=== PATIENT | female | born 1990 | race Caucasian/White ===

== ENCOUNTER 2019-02-15 04:02 | Inpatient (IN) | payer BC, OTHER ==
[2019-02-15] VITALS (38 sets, daily range): BP systolic 102–148; BP diastolic 60–91
[~2019-02-15] VITALS: Ht 170.2 cm; Wt 81.3 kg
[2019-02-15] MEDS ORDERED: MULTTAB20 PO (04:23)
[2019-02-15] MEDS ORDERED: LACTATED RINGER'S 1000 ML IV STA (04:47)
[2019-02-15] MEDS ORDERED: LR 1,000 ML IV SCH (04:47)
[2019-02-15] MEDS ORDERED: PENICILLIN G POTASSIUM IV 5 MU in D5W MINI-BAG PLUS 100 ML IV STA (04:47)
[2019-02-15 05:21] LABS: HEMATOCRIT 35.5 % (36.0-47.0); HEMOGLOBIN 11.8 g/dl (12.0-15.5); MEAN CORPUSCULAR HGB CONC 33.2 g/dl (32.0-36.5); MEAN CORPUSCULAR VOLUME 90.3 fl (80.0-96.0); PLATELET COUNT, AUTOMATED 182 10^3/uL (150-450); RED BLOOD COUNT 3.93 10^6/uL (4.00-5.40); WHITE BLOOD COUNT 14.7 10^3/uL (4.0-10.0)
[2019-02-15] MEDS ORDERED: FENTANYL 2MCG/ML ROPIVACAINE 0.2% IN 0.9% NACL 100ML IVBAG As Ordered ONE (05:37)
[2019-02-15] MEDS ORDERED: LACTATED RINGER'S 1000 ML IV PRN (07:00)
[2019-02-15] MEDS ORDERED: diphenhydrAMINE INJ 50MG/ML VIAL (J1200) IV PRN (07:00)
[2019-02-15] MEDS ORDERED: EPIDURAL COMMENT XX SCH (07:00)
[2019-02-15] MEDS ORDERED: ONDANSETRON 4MG/2ML VIAL (J2405) IV PRN (07:00)
[2019-02-15] MEDS ORDERED: ePHEDrine SULFATE 25 MG/5 ML(5MG/ML) SYRINGE IV PRN (07:00)
[2019-02-15] MEDS ORDERED: NALOXONE INJ 0.4 MG/1 ML VIAL (J2310) IV PRN (07:00)
[2019-02-15] MEDS ORDERED: FENTANYL/ROPIVACAINE/NACL BAG 100 ML EPIDURAL SCH (07:00)
[2019-02-15] MEDS ORDERED: EPIDURAL/PCA KEYS XX PRN (07:00)
[2019-02-15] MEDS ORDERED: REFRIGERATOR IV KEYS XX PRN (07:00)
[2019-02-15] MEDS ORDERED: PENICILLIN G POTASSIUM IV 2.5 MU in APPROPRIATE DILUENT 1 EA IV SCH (09:00)
[2019-02-15] MEDS ORDERED: OXYTOCIN 30 UNITS IN 0.9% NaCl 500ML IV BAG (J2590) As Ordered ONE (10:42)
[2019-02-15] MEDS ORDERED: OXYTOCIN DRIP 30 UNITS in APPROPRIATE DILUENT 1 EA IV SCH (11:15)
[2019-02-15] MEDS: OXYTOCIN DRIP 30 UNITS in APPROPRIATE DILUENT 1 EA IV SCH ×2 (12:49→15:47)
[2019-02-15 12:58] LABS: CORD GAS ABE A -4.7; CORD GAS HCO3 A 23.6 MEQ/L; CORD GAS O2 SAT A 51.5 %; CORD GAS PCO2 A 55.5 mmHg; CORD GAS PH A 7.247 UNITS; CORD GAS PO2 A 25.4 mmHg; CORD GAS SBC A 19.4 MEQ/L; CORD GAS TCO2 A 25.3 MEQ/L
[2019-02-15 12:59] LABS: CORD GAS ABE V -2.9; CORD GAS HCO3 V 22.1 MEQ/L; CORD GAS O2 SAT V 80.1 %; CORD GAS PCO2 V 39.6 mmHg; CORD GAS PH V 7.364 UNITS; CORD GAS PO2 V 35.2 mmHg; CORD GAS SBC V 21.6 MEQ/L; CORD GAS TCO2 V 23.3 MEQ/L
[2019-02-15] MEDS ORDERED: RHOGAM 300 MCG (1500 IU) INJ (J2790) IM SCH (13:15)
[2019-02-15] MEDS ORDERED: ACETAMINOPHEN 500 MG TAB PO PRN (13:15)
[2019-02-15] MEDS ORDERED: ACETAMINOPHEN TAB 650MG DOSE (2X325MG) PO PRN (13:15)
[2019-02-15] MEDS ORDERED: DOCUSATE SODIUM 100 MG CAP PO PRN (13:15)
[2019-02-15] MEDS ORDERED: MEASLES,MUMPS,RUBELLA VACCINE INJ (MMR-II) (90707) SC SCH (13:15)
[2019-02-15] MEDS ORDERED: DIBUCAINE 1% OINTMENT 30GM TOP PRN (13:15)
[2019-02-15] MEDS ORDERED: METHYLERGONOVINE MALEATE 0.2 MG TAB PO PRN (13:15)
[2019-02-15] MEDS ORDERED: IBUPROFEN 600 MG TAB PO PRN (13:15)
[2019-02-15] MEDS: IBUPROFEN 800 MG TAB PO PRN (15:02)
--- NOTE | 2019-02-15 20:41 | HPE ---
DATE OF ADMISSION: 02/15/2019 Ally is a 28-year-old female, 2, para 0-0-1-0 with an estimated date of confinement (EDC) of 02/18/2019, estimated gestational age (EGA) 39-5/7 weeks gestation who presented to labor and delivery with complaints of contractions. Upon evaluation in labor and delivery, she was found to be in active labor. At this point, a decision was made for admission. Her record reviewed, which was essentially unremarkable. She initiated care in our office at approximately 6 weeks gestation. Her labs: Blood type is O+, rubella immune, hepatitis negative, HIV negative, GC, chlamydia negative, 1-hour sugar testing was within normal limits. Her GBS is positive. PAST MEDICAL HISTORY: Denies. PAST SURGICAL HISTORY: [place] tooth extraction in 2005. SOCIAL HISTORY: She is . Denies any alcohol, drug or cigarette smoking. REVIEW OF SYSTEMS: Unremarkable. MEDICATIONS: vitamins ALLERGIES: No known drug allergies. PHYSICAL EXAMINATION: HEENT: Grossly within normal limits. Abdomen: Soft, nontender, nondistended. Extremities: No clubbing, cyanosis or edema. Vaginal exam: 4 cm, 80% effaced, fetus at -2 station in a vertex position with a bulging membrane. Tracing reviewed; category one tracing. Contractions every 3-4 minutes. ASSESSMENT: 1. Intrauterine at 39-5/7 weeks gestation, in active labor. 2. Group B strep positive. PLAN: Admit to labor and delivery. Routine labs sent. Pain management discussed. The patient opted for an epidural. Ampicillin started for GBS prophylaxis.
[2019-02-16 06:18] VITALS: BP 114/68
[2019-02-16] MEDS: PRENATAL VITAMINS CHEWABLE TABLET PO SCH (08:05)
--- NOTE | 2019-02-16 17:32 | DN ---
DATE: 02/15/2019 Talia is a 28-year-old female 1, para 0 who is admitted at 39-5/7 weeks gestation in active labor. She progressed to fully dilated, delivered a live male in occiput posterior position with a nuchal cord times one. scores 9 and 9. weight 7 pounds, 15 ounces. Placenta delivered spontaneously intact, three-vessel cord. A right labial laceration noted which was repaired using 3-0 chromic. Estimated blood loss 300 mL. Both mother and baby in stable condition.
[2019-02-16 18:00] VITALS: BP 116/64
[2019-02-16] MEDS: IBUPROFEN 800 MG TAB PO PRN (19:51)
[2019-02-17 05:48] VITALS: BP 119/70
[2019-02-17] MEDS: PRENATAL VITAMINS CHEWABLE TABLET PO SCH (08:46)
== END 2019-02-17 14:15 | disposition home or self-care (01) | DRG 560 ==
LOC: M LDO 04:02 → M LDI 05:13 → M OBS 15:18
PROVIDERS: ADMIT Obstetrics & Gynecology; ATTEND Obstetrics & Gynecology
PROC: 10E0XZZ Delivery of Products of Conception, External Approach (ICD-10-PCS; principal; 2019-02-15)
PROC: 0HQ9XZZ Repair Perineum Skin, External Approach (ICD-10-PCS; 2019-02-15)
DX: O99.824 Streptococcus B carrier state complicating childbirth (principal); Z3A.39 39 weeks gestation of pregnancy; Z37.0 Single live birth; O70.0 First degree perineal laceration during delivery

== ENCOUNTER → 2020-07-24 | Outpatient (CLI) | payer SELFPAY ==
[~2020-07-24] MED LIST: MULTTAB20 PO
== END ==
LOC: M LABSMTC 10:19
PROVIDERS: ATTEND Pediatrics
DX: Z20.822 Contact with and (suspected) exposure to COVID-19 (principal)

== ENCOUNTER → 2021-05-01 | Outpatient (REF) | payer BC, OTHER ==
[2021-05-01 18:03] LABS: HEMATOCRIT 39.9 % (36.0-47.0); HEMOGLOBIN 13.4 g/dl (12.0-15.5); MEAN CORPUSCULAR HEMOGLOBIN 30.4 pg (27.0-33.0); MEAN CORPUSCULAR HGB CONC 33.6 g/dl (32.0-36.5); MEAN CORPUSCULAR VOLUME 90.5 fl (80.0-96.0); PLATELET COUNT, AUTOMATED 274 10^3/uL (150-450); RED BLOOD COUNT 4.41 10^6/uL (4.00-5.40); WHITE BLOOD COUNT 9.4 10^3/uL (4.0-10.0)
[2021-05-01 19:42] LABS: HCG, SERUM QUANTITATIVE 60725 MIU/ML; HEPATITIS B SURFACE ANTIGEN NEGATIVE (NEGATIVE)
[2021-05-01 21:49] LABS: HEPATITIS C VIRUS ABY INDEX < 0.0 INDEX (<0.8); HIV 1&2 SCREEN CENTAUR NEGATIVE (NEGATIVE)
== END ==
LOC: M LAB REF 17:11
PROVIDERS: ATTEND Advanced Practice Midwife
DX: O36.80X0 Pregnancy with inconclusive fetal viability, not applicable or unspecified (principal); Z32.01 Encounter for pregnancy test, result positive

== ENCOUNTER → 2021-09-04 | Outpatient (CLI) | payer BC, OTHER ==
[2021-09-04 08:53] LABS: BASO % 0.3 % (0.0-1.0); EOS % 0.3 % (0.0-3.0); HEMATOCRIT 34.1 % (36.0-47.0); HEMOGLOBIN 11.1 g/dl (12.0-15.5); LYMPH # 1.8 10^3/uL (1.5-5.0); LYMPH % 12.8 % (24.0-44.0); MEAN CORPUSCULAR HEMOGLOBIN 29.3 pg (27.0-33.0); MEAN CORPUSCULAR HGB CONC 32.6 g/dl (32.0-36.5); MONO # 0.9 10^3/uL (0.0-0.8); MONO % 6.5 % (2.0-8.0); NEUTROPHILS # 10.9 10^3/uL (1.5-8.5); NEUTROPHILS % 79.4 % (36.0-66.0); PLATELET COUNT, AUTOMATED 266 10^3/uL (150-450); RED BLOOD COUNT 3.79 10^6/uL (4.00-5.40); WHITE BLOOD COUNT 13.8 10^3/uL (4.0-10.0)
== END ==
LOC: M LAB 07:09
PROVIDERS: ATTEND Advanced Practice Midwife
DX: Z34.82 Encounter for supervision of other normal pregnancy, second trimester (principal); Z36.89 Encounter for other specified antenatal screening

== ENCOUNTER → 2021-11-06 | Outpatient (REF) | payer BC, OTHER | LOC: M LAB REF 16:28 | PROVIDERS: ATTEND Obstetrics & Gynecology | DX: Z34.83 Encounter for supervision of other normal pregnancy, third trimester (principal) ==